=== PATIENT | male | born 1950 | race Hispanic/Latino ===

== ENCOUNTER 2018-05-01 14:30 | Inpatient (IN) | payer OTHER ==
[~2018-05-01] VITALS: Ht 167.6 cm; Wt 74.1 kg
[2018-05-01 12:09] VITALS: BP 99/61
[2018-05-01 12:18] LABS: EOSINOPHILS % (AUTO) 2.9 % (0.0-8.0); HEMATOCRIT 42.6 % (36-48); LYMPHOCYTES % (AUTO) 37.1 % (21.0-51.0); MEAN CORPUSCULAR HEMOGLOBIN 33.8 pg (27.0-33.0); MEAN CORPUSCULAR HGB CONC 32.9 g/dL (32.0-36.0); MEAN CORPUSCULAR VOLUME 102.7 fL (79-99); MONOCYTES % (AUTO) 12.1 % (3.0-13.0); NEUTROPHILS % (AUTO) 46.9 % (40.0-77.0); PLATELET COUNT (AUTO) 174 K/uL (130-400); RED BLOOD CELL COUNT(AUTO) 4.15 MIL/uL (4.00-5.50); RED CELL DISTRIBUTION WIDTH 14.1 % (11.0-15.5); WHITE BLOOD COUNT (AUTO) 5.1 K/uL (4.8-10.8)
[2018-05-01 12:24] LABS: POTASSIUM 4.6 mmol/L (3.5-5.1)
[2018-05-01 12:30] LABS: INR 1.02 (0.85-1.15); PARTIAL THROMBOPLASTIN TIME 31.5 SEC (26.3-35.5); PROTHROMBIN TIME 10.7 SEC (9.6-11.6)
[2018-05-01 12:35] LABS: APPEARANCE,URINE Clear (CLEAR); BILIRUBIN,URINE Negative (NEGATIVE); COLOR,URINE Yellow (YELLOW); GLUCOSE, URINE (UA) Negative (NEGATIVE); KETONES,URINE Negative (NEGATIVE); LEUKOCYTE ESTERASE ,URINE Trace (NEGATIVE); NITRATE,URINE Negative (NEGATIVE); OCCULT BLOOD,URINE Negative (NEGATIVE); PROTEIN,URINE Negative (NEGATIVE)
[2018-05-01 13:02] LABS: BACTERIA,URINE Rare /HPF (None Seen); RBC,URINE 0-1 /HPF (0-1); SQUAMOUS EPITHELIAL CELL,UR 0-2 /HPF (0-2); WBC,URINE 0-1 /HPF (0-1)
[~2018-05-01 14:30] MED LIST: ALBUTEROL NEB; ATOR-2 PO; BUDE10.2 IH; GABA-529 PO; METH750T3 PO; OMEP20CA10 PO; TAMS0.4C32 PO; TRAM50TA4 PO
[2018-05-04] VITALS (38 sets, daily range): BP systolic 78–129; BP diastolic 41–78
[2018-05-04] MEDS: CEFAZOLIN SODIUM 1 GM VIAL IVP SCH ×4 (06:00→22:31)
[2018-05-04] MEDS ORDERED: LACTATED RINGERS 1000ML 1,000 ML IV ONE (09:53)
[2018-05-04] MEDS ORDERED: CELECOXIB 200 MG CAP ONE (10:42)
[2018-05-04] MEDS ORDERED: ACETAMINOPHEN EXTRA STRENGTH 500 MG TABLET ONE (10:42)
[2018-05-04] MEDS ORDERED: OXYCODONE HCL 10 MG TAB.SR.12H PO ONE (10:43)
[2018-05-04] MEDS ORDERED: IPRATROPIUM/ALBUTEROL SULFATE 3 ML SOLUTION IH ONE (11:10)
[2018-05-04] MEDS ORDERED: LIDOCAINE PF 2% 5ML ABBOJECT ONE (12:01)
[2018-05-04] MEDS ORDERED: SUCCINYLCHOLINE CHLORIDE 20 MG/ML 10 ML VIAL ONE (12:01)
[2018-05-04] MEDS ORDERED: PROPOFOL 10 MG/ML 20ML VIAL IV ONE (12:01)
[2018-05-04] MEDS ORDERED: ROCURONIUM 10MG/1ML SYR 10 MG/ML ML ONE (12:01)
[2018-05-04] MEDS ORDERED: FENTANYL CITRATE PF 50 MCG/1 ML 5ML AMP IV ONE (12:02)
[2018-05-04] MEDS ORDERED: KETOROLAC TROMETHAMINE 15MG/ML ONE (12:23)
[2018-05-04] MEDS: TRANEXAMIC ACID 1000MG/10ML IV ONE ×2 (13:00→17:15)
[2018-05-04] MEDS ORDERED: GLYCOPYRROLATE 1 MG/5 ML SYRINGE ONE (13:02)
[2018-05-04] MEDS ORDERED: EPHEDRINE SULFATE 50 MG/ML AMPULE ONE ×4 (13:12→17:41)
[2018-05-04] MEDS ORDERED: FENTANYL CITRATE PF 50 MCG/1 ML 2ML VIAL ONE (16:23)
[2018-05-04] MEDS ORDERED: POTASSIUM CHLORIDE 10% ELIXIR 20 MEQ/15 ML UDCUP PO PRN (16:45)
[2018-05-04] MEDS ORDERED: FERROUS FUMARATE 324 MG TABLET PO PRN (16:45)
[2018-05-04] MEDS ORDERED: MORPHINE-NS 50 MG/50 ML 50 ML IV PRN (16:45)
[2018-05-04] MEDS ORDERED: POTASSIUM CHLORIDE 20 MEQ ERTAB PO PRN (16:45)
[2018-05-04] MEDS ORDERED: TEMAZEPAM 15 MG CAPSULE PO PRN (16:45)
[2018-05-04] MEDS ORDERED: OXYCODONE HCL 5 MG TAB PO PRN (16:45)
[2018-05-04] MEDS ORDERED: ONDANSETRON HCL 4 MG/2 ML VIAL IVP PRN (16:45)
[2018-05-04] MEDS ORDERED: DiphenhydrAMINE HCL 50 MG/ML VIAL IVP PRN (16:45)
[2018-05-04] MEDS ORDERED: TRAMADOL HCL 50 MG TABLET PO PRN ×2 (16:45→19:30)
[2018-05-04] MEDS ORDERED: NALOXONE HCL 0.4 MG/1 ML ML IVP PRN (16:45)
[2018-05-04] MEDS ORDERED: LIDOCAINE HCL-MPF 1% 2ML VIAL IVP PRN (16:45)
[2018-05-04] MEDS: ACETAMINOPHEN EXTRA STRENGTH 500 MG TABLET PO SCH (16:45)
[2018-05-04] MEDS ORDERED: POTASSIUM CHLORIDE 20MEQ/100ML 100 ML IV PRN (16:45)
[2018-05-04] MEDS ORDERED: HYDROMORPHONE 1 MG/1 ML AMP ONE (16:54)
[2018-05-04] MEDS ORDERED: SYMBICORT 160-4.5 MCG INHALER IH PRN (19:30)
[2018-05-04] MEDS: KETOROLAC TROMETHAMINE 15MG/ML IV PRN (19:42)
[2018-05-04] MEDS: SODIUM CHLORIDE 0.9% 1000ML 1,000 ML IV SCH (19:42)
[2018-05-04] MEDS: Methocarbamol 750 MG PO SCH (21:00)
[2018-05-04] MEDS: GABAPENTIN 100 MG CAPSULE PO SCH (21:01)
[2018-05-04] MEDS: CELECOXIB 200 MG CAP PO SCH (21:01)
[2018-05-04] MEDS: ASPIRIN 325 MG TABLET PO SCH (21:01)
[2018-05-04] MEDS: OXYCODONE HCL 5 MG TAB PO PRN (21:02)
[2018-05-05] MEDS: ACETAMINOPHEN EXTRA STRENGTH 500 MG TABLET PO SCH ×4 (01:07→23:55)
[2018-05-05] MEDS: SODIUM CHLORIDE 0.9% 1000ML 1,000 ML IV SCH ×2 (02:31→13:55)
[2018-05-05] MEDS: OXYCODONE HCL 5 MG TAB PO PRN ×4 (03:14→19:18)
[2018-05-05 04:19] VITALS: BP 99/51
[2018-05-05 04:56] LABS: HEMATOCRIT 26.2 % (42-54); MEAN CORPUSCULAR HEMOGLOBIN 34.6 pg (27.0-33.0); MEAN CORPUSCULAR HGB CONC 33.3 g/dL (32.0-36.0); MEAN CORPUSCULAR VOLUME 103.7 fL (79-99); PLATELET COUNT (AUTO) 152 K/uL (130-400); RED BLOOD CELL COUNT(AUTO) 2.53 MIL/uL (4.50-6.20); RED CELL DISTRIBUTION WIDTH 13.8 % (11.0-15.5); WHITE BLOOD COUNT (AUTO) 9.1 K/uL (4.8-10.8)
[2018-05-05] MEDS: CEFAZOLIN SODIUM 1 GM VIAL IVP SCH (05:23)
[2018-05-05] MEDS: ALBUTEROL SULFATE 0.083% 2.5 MG/3 ML INH IH PRN (06:23)
[2018-05-05] MEDS: CELECOXIB 200 MG CAP PO SCH ×2 (07:52→19:18)
[2018-05-05] MEDS: TAMSULOSIN HCL 0.4 MG CAP.ER.24H PO SCH (07:52)
[2018-05-05] MEDS: ASPIRIN 325 MG TABLET PO SCH ×2 (07:52→19:17)
[2018-05-05] MEDS: ATORVASTATIN CALCIUM 40 MG TABLET PO SCH (07:53)
[2018-05-05] MEDS: POLYETHYLENE GLYCOL 3350 17 GM POWD.PACK PO SCH (07:53)
[2018-05-05] MEDS: PANTOPRAZOLE SODIUM 40 MG TABLET.DR PO SCH (07:53)
[2018-05-05 07:59] VITALS: BP 105/54
[2018-05-05] MEDS: CALCIUM CARBONATE 500 MG TABLET PO PRN ×2 (08:00→19:18)
[2018-05-05] MEDS: PREGABALIN 25 MG CAP PO SCH (08:03)
[2018-05-05] MEDS: Methocarbamol 750 MG PO SCH ×4 (09:00→19:21)
[2018-05-05] MEDS ORDERED: ENOXAPARIN SODIUM 40 MG/0.4 ML SYRINGE SQ SCH (11:00)
[2018-05-05 12:00] VITALS: BP 110/57
[2018-05-05 15:25] VITALS: BP 115/62
[2018-05-05] MEDS ORDERED: SODIUM CHLORIDE 0.9% 1000ML 1,000 ML IV SCH (18:30)
[2018-05-05] MEDS: GABAPENTIN 100 MG CAPSULE PO SCH (19:18)
[2018-05-05 20:16] VITALS: BP 113/58
[2018-05-06 00:16] VITALS: BP 98/52
[2018-05-06 04:20] VITALS: BP 108/57
[2018-05-06] MEDS: OXYCODONE HCL 5 MG TAB PO PRN ×4 (04:47→19:24)
[2018-05-06] MEDS: ALBUTEROL SULFATE 0.083% 2.5 MG/3 ML INH IH PRN ×2 (06:36→11:42)
[2018-05-06 08:11] VITALS: BP 147/67
[2018-05-06] MEDS: ACETAMINOPHEN EXTRA STRENGTH 500 MG TABLET PO SCH ×2 (08:21→16:51)
[2018-05-06] MEDS: PANTOPRAZOLE SODIUM 40 MG TABLET.DR PO SCH (08:21)
[2018-05-06] MEDS: ATORVASTATIN CALCIUM 40 MG TABLET PO SCH (08:21)
[2018-05-06] MEDS: TAMSULOSIN HCL 0.4 MG CAP.ER.24H PO SCH (08:21)
[2018-05-06] MEDS: ASPIRIN 325 MG TABLET PO SCH ×2 (08:21→19:22)
[2018-05-06] MEDS: PREGABALIN 25 MG CAP PO SCH (08:22)
[2018-05-06] MEDS: CELECOXIB 200 MG CAP PO SCH ×2 (08:22→19:22)
[2018-05-06] MEDS: POLYETHYLENE GLYCOL 3350 17 GM POWD.PACK PO SCH (08:22)
[2018-05-06] MEDS: Methocarbamol 750 MG PO SCH ×4 (08:23→21:00)
[2018-05-06] MEDS ORDERED: TRAM50TA4 PO (08:33)
[2018-05-06 09:14] LABS: MEAN CORPUSCULAR HEMOGLOBIN 34.8 pg (27.0-33.0); MEAN CORPUSCULAR HGB CONC 33.7 g/dL (32.0-36.0); MEAN CORPUSCULAR VOLUME 103.2 fL (79-99); PLATELET COUNT (AUTO) 117 K/uL (130-400); RED BLOOD CELL COUNT(AUTO) 2.04 MIL/uL (4.50-6.20); RED CELL DISTRIBUTION WIDTH 14.2 % (11.0-15.5); WHITE BLOOD COUNT (AUTO) 6.9 K/uL (4.8-10.8)
[2018-05-06 11:26] VITALS: BP 113/59
[2018-05-06] MEDS ORDERED: FUROSEMIDE 10 MG/ML 2ML VIAL IV SCH ×2 (13:15→13:30)
[2018-05-06] MEDS ORDERED: SODIUM CHLORIDE 0.9% 250 ML IV ONE (15:42)
[2018-05-06 16:00] VITALS: BP 110/62
[2018-05-06] MEDS ORDERED: ASPIRIN 325 MG TABLET PO SCH (19:00)
[2018-05-06] MEDS ORDERED: FUROSEMIDE 10 MG/ML 2ML VIAL ONE (19:20)
[2018-05-06] MEDS: GABAPENTIN 100 MG CAPSULE PO SCH (19:22)
[2018-05-06 19:29] VITALS: BP 106/67
[2018-05-07] VITALS (7 sets, daily range): BP systolic 110–132; BP diastolic 61–85
[2018-05-07] MEDS: ACETAMINOPHEN EXTRA STRENGTH 500 MG TABLET PO SCH ×3 (00:13→17:55)
[2018-05-07 04:04] LABS: HEMATOCRIT 25.4 % (42-54); MEAN CORPUSCULAR HEMOGLOBIN 33.3 pg (27.0-33.0); MEAN CORPUSCULAR HGB CONC 33.6 g/dL (32.0-36.0); MEAN CORPUSCULAR VOLUME 99.1 fL (79-99); PLATELET COUNT (AUTO) 99 K/uL (130-400); RED BLOOD CELL COUNT(AUTO) 2.57 MIL/uL (4.50-6.20); RED CELL DISTRIBUTION WIDTH 15.1 % (11.0-15.5); WHITE BLOOD COUNT (AUTO) 6.1 K/uL (4.8-10.8)
[2018-05-07] MEDS: ALBUTEROL SULFATE 0.083% 2.5 MG/3 ML INH IH PRN (06:21)
[2018-05-07] MEDS: PANTOPRAZOLE SODIUM 40 MG TABLET.DR PO SCH (07:56)
[2018-05-07] MEDS: CELECOXIB 200 MG CAP PO SCH ×2 (07:57→22:17)
[2018-05-07] MEDS: POLYETHYLENE GLYCOL 3350 17 GM POWD.PACK PO SCH (07:57)
[2018-05-07] MEDS: ASPIRIN 325 MG TABLET PO SCH ×2 (07:57→22:17)
[2018-05-07] MEDS: ATORVASTATIN CALCIUM 40 MG TABLET PO SCH (07:57)
[2018-05-07] MEDS: TAMSULOSIN HCL 0.4 MG CAP.ER.24H PO SCH (07:57)
[2018-05-07] MEDS: OXYCODONE HCL 5 MG TAB PO PRN ×3 (07:57→22:21)
[2018-05-07] MEDS: KETOROLAC TROMETHAMINE 15MG/ML IV PRN (07:58)
[2018-05-07] MEDS: Methocarbamol 750 MG PO SCH ×4 (08:09→21:00)
[2018-05-07] MEDS: PREGABALIN 25 MG CAP PO SCH (08:09)
[2018-05-07] MEDS ORDERED: BISACODYL 10 MG SUPP.RECT RC PRN (16:45)
[2018-05-07] MEDS: GABAPENTIN 100 MG CAPSULE PO SCH (22:17)
[2018-05-08 00:14] VITALS: BP 109/71
[2018-05-08] MEDS: ACETAMINOPHEN EXTRA STRENGTH 500 MG TABLET PO SCH ×3 (01:06→17:05)
[2018-05-08 03:57] LABS: HEMATOCRIT 25.1 % (42-54)
[2018-05-08 04:00] VITALS: BP 118/72
[2018-05-08 07:46] VITALS: BP 151/82
[2018-05-08] MEDS: TAMSULOSIN HCL 0.4 MG CAP.ER.24H PO SCH (08:44)
[2018-05-08] MEDS: CELECOXIB 200 MG CAP PO SCH (08:44)
[2018-05-08] MEDS: ASPIRIN 325 MG TABLET PO SCH (08:44)
[2018-05-08] MEDS: PANTOPRAZOLE SODIUM 40 MG TABLET.DR PO SCH (08:45)
[2018-05-08] MEDS: ATORVASTATIN CALCIUM 40 MG TABLET PO SCH (08:45)
[2018-05-08] MEDS: KETOROLAC TROMETHAMINE 15MG/ML IV PRN ×2 (08:45→14:39)
[2018-05-08] MEDS: POLYETHYLENE GLYCOL 3350 17 GM POWD.PACK PO SCH (08:45)
[2018-05-08] MEDS: PREGABALIN 25 MG CAP PO SCH (08:45)
[2018-05-08] MEDS: Methocarbamol 750 MG PO SCH ×2 (08:48→11:21)
[2018-05-08 11:14] VITALS: BP 144/82
[2018-05-08] MEDS: OXYCODONE HCL 5 MG TAB PO PRN (13:30)
[2018-05-08 15:34] VITALS: BP 127/72
[2018-05-08] MEDS ORDERED: HYDR-4457 PO (17:43)
[2018-05-08] MEDS ORDERED: ASPI-1012 PO (17:43)
[2018-05-08] MEDS ORDERED: FERR324T10 PO (17:57)
[2018-05-08 20:00] VITALS: BP 129/64
== END 2018-05-08 20:05 | disposition home health service (06) | DRG 470 ==
LOC: EDSTATUS 14:30 → EDSEX 05-04 09:24 → DAHIP 05-04 09:24 → 4AH 05-04 18:29
PROVIDERS: ADMIT Orthopaedic Surgery; ATTEND Orthopaedic Surgery
PROC: 0SRB03Z Replacement of Left Hip Joint with Ceramic Synthetic Substitute, Open Approach (ICD-10-PCS; principal; 2018-05-04 12:40)
PROC: 30233N1 Transfusion of Nonautologous Red Blood Cells into Peripheral Vein, Percutaneous Approach (ICD-10-PCS; 2018-05-06)
DX: M16.12 Unilateral primary osteoarthritis, left hip (principal); I50.42 Chronic combined systolic (congestive) and diastolic (congestive) heart failure; I11.0 Hypertensive heart disease with heart failure; E78.5 Hyperlipidemia, unspecified; G89.29 Other chronic pain; I95.81 Postprocedural hypotension; J44.9 Chronic obstructive pulmonary disease, unspecified; Z82.49 Family history of ischemic heart disease and other diseases of the circulatory system; Z87.442 Personal history of urinary calculi; Z79.899 Other long term (current) drug therapy; Z88.8 Allergy status to other drugs, medicaments and biological substances
CPT/HCPCS: 36415; 36430; 73503; 73521; 80048; 81001; 82270; 85014; 85018; 85025; 85027; 85610; 85730; 86850; 86900; 86901; 86922; 88304; 88311; 94640; 94664; 96374; 97039; C1776; J0330; J0690; J1170; J1885; J1940; J2001; J2270; J2405; J2704; J3010; J3490; J7030; J7120; P9016

== ENCOUNTER → 2019-02-23 | Outpatient (CLI) | payer OTHER ==
[~2019-02-23] VITALS: Ht 170.2 cm; Wt 67.1 kg
[~2019-02-23] MED LIST changes: +ASPI-1012 PO; +CYAN1000I IM; +FERR324T10 PO; +HYDR-4457 PO; +OMEP-50 PO; -OMEP20CA10 PO; +REGADENOSON 0.4 MG/5 ML PF SYG IVP SCH; -TRAM50TA4 PO
== END | disposition home or self-care (01) ==
LOC: SHCH 08:18
PROVIDERS: ATTEND Internal Medicine Cardiovascular Disease
DX: I95.2 Hypotension due to drugs (principal); I11.0 Hypertensive heart disease with heart failure; I50.42 Chronic combined systolic (congestive) and diastolic (congestive) heart failure
CPT/HCPCS: 78452; 93017; 96374; A9500 ×2; J2785

== ENCOUNTER → 2019-04-28 | Outpatient (CLI) | payer OTHER ==
[~2019-04-28] MED LIST changes: -ASPI-1012 PO; -FERR324T10 PO; -GABA-529 PO; -HYDR-4457 PO; -METH750T3 PO; -REGADENOSON 0.4 MG/5 ML PF SYG IVP SCH; +TRAM50TA4 PO
== END | disposition home or self-care (01) ==
LOC: OIH 10:55
PROVIDERS: ATTEND Internal Medicine Cardiovascular Disease
DX: I11.0 Hypertensive heart disease with heart failure (principal); I50.22 Chronic systolic (congestive) heart failure
CPT/HCPCS: 71046